=== PATIENT | female | born 1935 | race Caucasian/White ===

== ENCOUNTER 2023-04-24 12:35 | Emergency (ER) | payer MEDICARE ==
[~2023-04-24] VITALS: Ht 157.5 cm; Wt 70.3 kg
[2023-04-24 12:53] VITALS: BP 159/82
[2023-04-24 13:00] VITALS: BP 138/80
[2023-04-24 13:19] VITALS: BP 158/70
[2023-04-24 14:52] VITALS: BP 163/71
== END 2023-04-24 14:57 | disposition home or self-care (01) ==
LOC: ED 12:35
DX: S00.11XA Contusion of right eyelid and periocular area, initial encounter (principal); S51.811A Laceration without foreign body of right forearm, initial encounter; M25.511 Pain in right shoulder; E78.5 Hyperlipidemia, unspecified; W01.0XXA Fall on same level from slipping, tripping and stumbling without subsequent striking against object, initial encounter; Y92.009 Unspecified place in unspecified non-institutional (private) residence as the place of occurrence of the external cause